=== PATIENT | female | born 1960 | race Two or more races ===

== ENCOUNTER 2025-04-15 10:39 | Day surgery (SDC) | payer OTHER, SELFPAY ==
--- OUTSIDE RECORDS SUMMARY | 2025-03-24 16:15 | XMS_ITS | Clinical Summary ---
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 since she has mildly elevated bp today She will trail this since she didn't like SSRI In past. EKG stable Will order blood work Discuss medications at follow up in 1 month Assessment & Plan (04/06/2017 5:11 PM EDT): A: Depression symptoms. P: Learn relaxation skills. Improve sleep hygiene. Cognitive restructuring. Grounding techniques. Assessment & Plan (02/06/2017 6:38 PM EDT): A: Depression symptoms. P: . Learn relaxation skills. Improve sleep hygiene. Cognitive restructuring. Grounding techniques. Assessment & Plan (01/04/2017 12:35 PM EDT): A: Depression symptoms. P: Build therapeutic alliance. Learn relaxation skills. Improve sleep hygiene. Cognitive restructuring. Grounding techniques. Assessment & Plan (12/26/2016 6:39 PM EDT): A: Depression symptoms. P: Build therapeutic alliance. Learn relaxation skills. Improve sleep hygiene. Cognitive restructuring. Grounding techniques. Assessment & Plan (09/08/2016 4:19 PM EST): A: Depression symptoms. P: Build therapeutic alliance. Learn relaxation skills. Improve sleep hygiene. Cognitive restructuring. Grounding techniques. Seasonal allergic rhinitis due to pollen 08/07/2016 01/16/2022 Overview (08/07/2016): [place] to [place] [facility] [place] & Plan (05/24/2021 10:29 AM EDT): Ongoing for years. Has not been taking her medication. Reports recurrent nasal congestion and mucosal irritation. Advise she should start taking her Flonase and loratadine. Assessment & Plan (03/22/2021 5:52 PM EDT): Ongoing issue for years. Patient used to take medicine in past. Patient reports recurrent nasal congestion, nasal mucousal irritation and sneezing. On assessment patient has pale boggy nasal turbinates. Will trail course of intranasal corticosteroids (flonase) and po loratadine for 30 days for symptoms relief. Assessment & Plan (08/07/2016 10:24 AM EST): Previously referred to ENT, [place] [facility] [place] Gave patient letter to call to reschedule her missed appt. Swelling of right hand 10/15/201512/07 Immunizations Immunization Administration Dates Next Due Flu, Multi Dose 0.5 ML 07/04/2021,08/11/2019 Flu, Preservative Free 06/15/2022,05/11/2020 Hep B, Adult/Adol (ZRHANTM-N-CPGQA/RECOMBIVAX-ADULT) 01/03/2019,08/07/2016,11/16/2015 INFLUENZA, SEASONAL, INJECTABLE 07/17/20 24,08/07/2016,10/11/2015,2013,07/07/2013,07/25/2011,06/28/2010 PFIZER COVID VACCINE, PURPLE CAP, 12+ 09/27/2021 ,11/11/2020,10/21/2020 [facility] State Funded Flu Vaccine 06/10/2014 ,07/07/2013,07/25/2011,2009 TDAP 03/18/2024,02/17/2013 Family History Medical History Relation Name Comments Glaucoma Father Diabetes Other diabetes Relati onship: Uncle Relation Name Status Comments Father Other Social History Tobacco Use Types Packs/Day Years Used Date Smoking Tobacco: Never Smokeless Tobacco: Never Tobacco Cessation:Counseling Given: Not Answered Alcohol Use Standard Drinks/Week Comments No 0 (1 standard drink = 0.6 oz pur e alcohol) Social Connections Answer Date Recorded Connectedness 0 05/17/2024 Financial Resource Strain Answer Date R ecorded Financial Resource Strain 0 2018 Stress Answer Date Recorded Stress 0 05/04/2019 Physical Activity Answer Date Recorded Physical Activity 0 05/04/2019 Food Insecurity Answer Date Recorded Within the past 12 months, t he food you bought just didn't last and you didn't have enough money to get more. 2 03/18/20 24 Transportation Needs Answer Date Record ed In the past 12 months, has l ack of transportation kept you from medical appointments, meetings, work or from getting things needed for daily living? (Check all that apply) 1 2023 Housing Stability Answer Date Recorded Housing 0 03/18/2024 Safety and Environment Answer Date Julio rded Safety 0 05/04/2019 Utilities Answer Date Recorded In the past 12 months has th e electric, gas, oil, or water company threatened to shut off services in your home? 2 03/18/2024 Employment Answer Date Recorded Stress 0 12/18/2022 Comments No Sex and Gender Information Value Date Recorded Sex Assigned at Female 04/06/2017 1:07 PM PDT Legal Sex Female 6:44 PM PDT Gender Identity Female 04/06/2017 1:07 PM PDT Sexual Orientation Straight 04/06/2017 1: 07 PM PDT Last Filed Vital Signs Vital Sign Reading Time Taken Comments Blood Pressure 146/95 07/17/2024 12:02 PM EST Pulse 96 07/17/2024 11:54 AM EST Temperature 37.2 C (99 F) 07/17/2024 11:54 AM EST Respiratory Rate 18 07/17/2024 11:54 AM EST Oxygen Saturation 97% 04/26/2023 2:08 PM EDT Inhaled Oxygen Concentration - - Weight 68 kg (150 lb) 07/17/2024 11:54 AM EST Height 156 cm (5' 1.42 ) 02/03/2022 9:35 AM EDT Body Mass Index 27.96 02/03/2022 9:35 AM EDT Plan of Treatment Health Maintenance Due Date Last Done Comments Anxiety Screening [address] Colonography 2007 FIT/gFOBT 2007 Fecal DNA 2007 Flexible Sigmoidoscopy 2007 Imm-Pneumococcal 50+ (1 of 1 - PCV) 2012 Imm-Zoster, Recombinant (1 of 2) 2012 Pap Smear 01/08/2022 01/08/2019 Annual Wellness (Adult): Indicated (All Coverage) 02/03/2023 02/03/2022, 01/03/2019, 08/07/2016 Cervical Cancer Screening 01/10/2024 Pap + HPV 01/10/2024 01/09/2019, 0509/2018, 01/08/2013 Diabetes Screening 04/25/2024 04/25/2023, 0 04/25/2023, 04/25/2023, Additional history exists [id number] (2023- season) 2024 09/27/2021, 11/11/2020, 10/21/2020 Alcohol and Drug Screen 09/10/2024 03/18/20 24, 12/18/2022, 02/03/2022, Additional history exists Depression Annual Screen 09/10/2024 03/18/2024, 03/2 05/2019 Colonoscopy 12/24/2024 12/24/2014 Colorectal Cancer Screening 12/24/2024 Breast Cancer Screening (Mammogram) 05/10/2025 05/10/2023, 05/08/2023, 05/08/2023, Additional history exists Imm-Influenza (#1) 2025 07/17/2024, 1 , 07/04/2021, Additional history exists Hypertension Screening (#1) 07/17/2025 Tobacco Screening 07/17/2025 07/17/2024 Lipid Screening 04/25/2028 04/25/2023, 0802/2023, 02/14/2022, Additional history exists Imm-DTaP/Tdap/Td (3 - Td or Tdap) 03/18/2034 024, 02/17/2013 HIV Screening Completed 10/11/2015 Hepatitis C Screening Completed 10/11/2015 Imm-Hepatitis B Completed 01/03/2019, 07/12, 11/16/2015 Cervical Ablation/Cold-Knife Conization Discontinued Cervical Cryotherapy Discontinued Colposcopy Discontinued Endometrial Biopsy Discontinued Excision/Leep Discontinued HPV Genotyping Discontinued Vaginal Pap Discontinued Vulvoscopy Discontinued Procedures Procedure Name Priority Date/Time Associated Diagnosis Comments DIAGNOSTIC MAMMOGRAPHY COMPUTER-AIDED DETCJ BI Routine 05/10/2023 8:28 AM EDT Mass of left axilla COMPREHENSIVE METABOLIC PANEL Routine 04/25/2023 8:04 AM EDT Diabetes mellitus screening LIPID PANEL Routine 04/25/2023 8:04 AM EDT Screening, lipid THIN PREP IMAGE PAP + HPV RNA (Q) Routine 01/08/2019 8:40 PM EDT Annual physical exam Screening for cervical cancer HIV 1/2 AG/AB Routine 10/11/2015 11:51 AM EST Screen for sexually transmitted diseases HEPATITIS C ANTIBODY Routine 10/11/2015 11:51 AM EST Need for hepatitis C screening test from Last 3 Months or Most Recently Relevant to Health Maintenance Results * Mammogram Diagnostic Bilateral (05/10/2023 8:28 AM EDT) Impressions Collin Mejia - 05/10/2023 8:28 AM EDT BI MAMMOGRAM SCREENING (LEFT/RIGHT/BILATERAL) 05/08/2023 Leanne Dominguez Order Report Mammogram Screening (Bilateral)Order: [id number] Performed 05/08/2023 14:06 Status: Final result Visible to patient: No (not released) 0 Result Notes 1 Assessment Overall 1 - Negative Mammography Recommendations Side Due Mammography Screening Bilateral 05/09/2024 Breast Density Overall Breast Composition c - Heterogeneously dense Details Reading Physician Reading Date Result Priority Brady Chavez MD Phone [phone] Pager [phone] 05/09/2023 Physician Responsible for MQSA Outcome Reason Brady Chavez MD Signed Narrative & Impression BI MAMMOGRAM SCREENING WITH TOMOSYNTHESIS WITH CAD (BILATERAL) Additional patient information: Screening. COMPARISON: Comparison is made with relevant prior imaging. Breast composition: The breast tissue is heterogeneously dense which may obscure small masses. FINDINGS: No abnormal masses, suspicious calcifications, or other significant findings are identified mammographically in either breast. IMPRESSION: No mammographic evidence of malignancy in either breast. Annual screening mammography is recommended. BI-RADS 1 NEGATIVE The patient will be notified of the results and recommendations. Specimen Collected: 05/09/23 16:00 Last Resulted: 05/09/23 16:01 Result Care Coordination Patient Communication Not released to patient Not Released Not seen Not seen Satisfied Health Maintenance Topics MAMMOGRAM (Every 2 Years) Next due on 05/08/2025 us Barbie Kaur IMG MAMMO Final Result * (ABNORMAL) LIPID PANEL (04/25/2023 8:04 AM EDT) HDL 76 >39 mg/dL [facility] CHOLESTEROL 222(H) 0 - 200 mg/dL [facility] TRIGLYCERIDE 91 0 - 150 mg/dL [facility] LDL 128 <130 mg/dL [facility] Comment: REFERENCE RANGE: Adult >= 18 years: - Desirable: <100 - Above desirable: 100-129 - Borderline high: 130-159 - High: 160-189 - Very High: >=190 Pediatric 2-17 years: - Acceptable: <110 - Borderline high: 110-129 - High: >=130 Reference ranges have not been established for patients that are less than 24 months of age. CARDIAC RISK RATIO 2.9 <5 [facility] NON HDL CHOL 146 mg/dL [facility] Comment: Reference Range: The non-HDL Cholesterol value should not exceed the desired LDL-C by more than 30 mg/dl. Processed and/or performed at [address] [place] [address] Blood Blood / Unknown 04/25/2023 8 :04 AM EDT us Barbie K[facility] LAB - BLOOD DRAW Final Result [address] [address], [place] [phone] * COMPREHENSIVE METABOLIC PANEL (04/25/2023 8:04 AM EDT) SODIUM 141 136 - 145 mmol/L [facility] POTASSIUM 4.0 3.6 - 5.1 mmol/L [facility] CHLORIDE 105 98 - 107 mmol/L [facility] CARBON DIOXIDE 28 22 - 32 mmol/L [facility] BUN 17 6 - 20 mg/dL [facility] CREATININE 0.89 0.4 - 1.0 mg/dL [facility] GLUCOSE 91 65 - 99 mg/dL [facility] ALBUMIN 4.1 3.5 - 5.2 g/dL [facility] TOTAL PROTEIN 6.9 6.1 - 8.1 g/dL [facility] CALCIUM 9.5 8.9 - 10.3 mg/dL [facility] ALK PHOS 78 40 - 130 U/L [facility] TOTAL BILIRUBIN 0.5 0.0 - 1.2 mg/dL [facility] AST 21 15 - 41 U/L [facility] ALT 13 10 - 35 U/L [facility] GLOBULIN 2.8 1.9 - 4.1 g/dL [facility] EGFR 74 60 - 128 mL/min/1.7 3m2 [facility] Comment: Estimated glomerular filtration rate calculated using the CKD-EPI refit equation. ANION GAP 8 3 - 17 mmol/L [facility] Comment:Processed and/or per formed at [address] [place] [address] Blood Blood / Unknown 04/25/2023 8 :04 AM EDT [facility] - BLOOD DRAW Final Result [address] [address], * Pap + HPV (cervix) (01/08/2019 8:40 PM EDT) Pathologist [facility] CLINICAL INFORMATION See Note [employer] Comment:Normal exam LMP See Note [employer] Comment:NONE GIVEN PREV. PAP See Note [employer] Comment:NONE GIVEN PREV. BX See Note [employer] Comment:NONE GIVEN SOURCE See Note [employer] Comment:Cervix STATEMENT OF ADEQUACY See Note [employer] Comment: Satisfactory for evaluation. Endocervical/transformation zone component present. INTERPRETATION/RESU LT See Note [employer] Comment:Negative for intraep ithelial lesion or malignancy. COMMENT See Note [employer] Comment: This Pap test has been evaluated with computer assisted technology. HUMAN SERVICE TECHNICIAN See Note [facility] [place] [employer] Comment: DMM, CT(ASCP) CT screening location: [address] [address] COMMENT [employer] HPV MRNA E6/E7 Not Detected Not Detected [facility] Comment: This test was performed using the APTIMA HPV Assay ([employer] This assay detects E6/E7 viral messenger RNA (mRNA) from 14 high-risk HPV types (16,18,31,33,35,39,45,51,52,56,58,59,66,68). The analytical performance characteristics of this assay have been determined by [employer]. The modifications have not been cleared or approved by the FDA. This assay has been validated pursuant to the CLIA regulations and is used for clinical purposes. NO COLLECTION DATE RECEIVED. WE HAVE USED THE DATE THE SPECIMEN WAS RECEIVED BY THIS LABORATORY THE COLLECTION DATE. IF THIS IS INCORRECT, PLEASE CONTACT CLIENT SERVICES. PHONE NUMBER: Cytologic material (specimen) Cervix uteri structure / Unknown 01/03/2019 8:16 PM EDT Narrative [employer] - 01/08/2019 8:40 PM EDT EXPLANATORY NOTE: The Pap is a screening test for cervical cancer. It is not a diagnostic test and is subject to false negative and false positive results. It is most reliable when a satisfactory sample, regularly obtained, is submitted with relevant clinical findings and history, and when the Pap result is evaluated along with historic and current clinical information. Performing Organization Information: [[id number]] : [facility], [address] [place] [address],[address], [place] [address] Director: DORA BRADLEY MD Darlene Chairez MD LAB - PATHOLOGY AND CYTOLOGY AMBULATORY Final Result [facility] [address] [address], [place] * HIV SCREENING TEST (10/11/2015 11:51 AM EST) HIV 1/2 AB/AG NEG NEG [facility] Blood specimen (specimen) Blood / Unknown 10/11/2015 11:51 AM EST us Darlene Chairez MD LAB - BLOOD DRAW Final Result [address] [address], [place] [phone] * HEPATITIS C ANTIBODY (10/11/2015 11:51 AM EST) HEP C ANTIBODY NEG NEG [facility] Blood specimen (specimen) Blood / Unknown 10/11/2015 11:51 AM EST Darlene Chairez MD LAB - BLOOD DRAW Final Result [address] [address], [place] [phone] from Last 3 Months or Most Recently Relevant to Health Maintenance Insurance [employer] Care Teams Marketing Forecaster Relationship Specialty Start Date End Date Pcp, Alyse Saavedra Needs [address] [place] [id number] PCP - General 09/17/24
[2025-04-13 08:54] VITALS: BMI 26.7
--- NOTE | 2025-04-14 09:28 | P.CONAN_ITS ---
Documented by User: Emily Salgado NP 04/14/25 09:29 HPI - Anesthesia Eval Consult details Narrative: 64yo F for Right Lateral Rectus Eye Muscle Recession,Right Medial Rectus Resection Medically optimized per [facility] Past Medical History Medical History Anxiety Constipation GERD (gastroesophageal reflux disease) HTN (hypertension) Surgical History Surgical History H/O colonoscopy Hx of tubal ligation Social History Social History Patient Tobacco Use Status: Never used Tobacco Use of substances other than those prescribed or required for medical reasons: No Are you DNR?: No Advance Directives: No Advance Directives Information Provided: Yes Patient : No : No Poor oral hygiene: No Meds Allergies Allergy/AdvReac Type Severity Reaction Status Date / Time No Known Allergies Allergy Verified 04/13/25 08:53 Home Medications ?Medication ?Instructions ?Recorded ?Confirmed ?Last Taken ?Type cetirizine 10 mg tablet 10 mg PO DAILY 04/13/2501/02 Unknown History lisinopril 10 mg tablet 10 mg PO DAILY 04/13/2501/02 Unknown History Exam Height,Weight and Vital Signs: Height 5 ft 2.2 in Weight 66.7 kg Assessment and Plan Assessment Anesthesia Assessment: Chart Reviewed Documented by User: Tanisha Landry MD 04/15/25 13:57 [facility] Past Medical History Medical History Anxiety Constipation GERD (gastroesophageal reflux disease) HTN (hypertension) Surgical History Surgical History H/O colonoscopy Hx of tubal ligation History of Problems with Anesthesia: No Social History Social History Patient Tobacco Use Status: Never used Tobacco Use of substances other than those prescribed or required for medical reasons: No Are you DNR?: No Advance Directives: No Advance Directives Information Provided: Yes Patient : No : No Poor oral hygiene: No Meds Allergies Allergy/AdvReac Type Severity Reaction Status Date / Time No Known Allergies Allergy Verified 04/13/25 08:53 Home Medications ?Medication ?Instructions ?Recorded ?Confirmed ?Last Taken ?Type cetirizine 10 mg tablet 10 mg PO DAILY 04/13/2501/02 Unknown History lisinopril 10 mg tablet 10 mg PO DAILY 04/13/2501/02 Unknown History Exam Airway Mallampati Class: III TM Dist: >3cm Neck ROM: Full Loose/Missing/Broken Teeth: No Heart: RRR Lungs: CTA Assessment and Plan Final Anesthetic Review History of Problems with Anesthesia: No NPO: Yes ASA Class: II Final Preanesthetic Review: Meds/Allgs Chart Reviewed, Consent Obtained/Reviewed and Anes Risks/Benef Reviewed Patient Risk: Low Procedure Risk: Low Anesthetic Plan Anesthetic Plan: GA Disposition: Standard PACU
[2025-04-15] VITALS (7 sets, daily range): BP systolic 123–155; BP diastolic 76–93; PULSE 70–89; RESP 16–18; TEMP 36.1–36.7; O2SAT 93–100; BMI 26.9
[2025-04-15] MEDS: Lactated Ringers 1,000 ML 100 ML IVCONT (11:25)
--- NOTE | 2025-04-15 15:33 | HO.OPHTHAL ---
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 Postoperative diagnosis same. Procedures 1. Recession of right medial rectus 4 mm 2. Resection of right lateral rectus [address] Stauffer. Anesthesia general. Complications none. The patient was brought to the operating room placed under general anesthesia. The right eye was prepped and draped in the usual sterile ophthalmic fashion. A lid speculum was placed in the eye and a peritomy was created around the medial rectus muscle. It was hooked and secured with a double-armed Vicryl suture. It was disinserted from the globe and reattached to a position 4 mm behind the original insertion. Conjunctiva was closed with interrupted Vicryl sutures. A peritomy was then created around the lateral rectus muscle. The muscle was hooked and dissected free of its overlying fascial attachments. It was grasped near the insertion with a clamp and a 7 mm resection was marked off with cautery. The distal muscle was then resected and the muscle was reattached to the original insertion using the Vicryl sutures. Conjunctiva was closed with interrupted Vicryl sutures. The patient was then awoken from general anesthesia and discharged to postoperative recovery in good condition.
--- NOTE | 2025-04-15 15:59 | PC.NURSE ---
MOVING PICTURE OPERATOR USED.
== END 2025-04-15 16:00 | disposition home or self-care (01) ==
PROVIDERS: Visit Provider Ophthalmology
PROC: (CPT 67312; principal; 2025-04-15 13:00)
DX: H49.21 Sixth [abducent] nerve palsy, right eye (principal); I10 Essential (primary) hypertension; K21.9 Gastro-esophageal reflux disease without esophagitis; F41.9 Anxiety disorder, unspecified; Z79.899 Other long term (current) drug therapy; Z98.51 Tubal ligation status
CPT/HCPCS: 67312; J0131; J1100; J1885; J2003; J2250; J2405; J2704; J3010